=== PATIENT | female | born 1975 | race Caucasian/White ===

== ENCOUNTER 2021-06-14 09:00 | Emergency (ER) | payer MEDICAID ==
[~2021-06-14] VITALS: Ht 154.9 cm; Wt 131.5 kg
[2021-06-14 09:26] VITALS: BP_SYST 128
[2021-06-14] MEDS ORDERED: BEN50 PO (11:25)
[2021-06-14] MEDS ORDERED: CEPH-548 PO (11:25)
[2021-06-14 11:33] VITALS: BP_SYST 132
== END 2021-06-14 11:35 | disposition home or self-care (01) ==
LOC: SED 09:00
DX: L30.9 Dermatitis, unspecified (principal); L03.90 Cellulitis, unspecified
CPT/HCPCS: 99283